=== PATIENT | female | born 1940 | race Caucasian/White ===

== ENCOUNTER → 2021-05-19 | Outpatient (CLI) | payer OTHER ==
[~2021-05-19] MED LIST: ALEVE220 M1 PO; COLACE 100MG C100 MG PO; DIGOXIN125 MCG PO; ELIQUIS 5 MG TAB5 MG PO; HYDROCHLOROTHIA25 MG PO; METOPROLOL SUCC25 MG PO; MULTAQ 400 MG400 MG PO; SENNA LAX8.6 MG PO
== END ==
LOC: HEART 5 14:05
DX: I48.91 Unspecified atrial fibrillation (principal); R60.9 Edema, unspecified; R06.02 Shortness of breath; I08.3 Combined rheumatic disorders of mitral, aortic and tricuspid valves; I27.20 Pulmonary hypertension, unspecified; J98.4 Other disorders of lung
CPT/HCPCS: 93306

== ENCOUNTER 2021-10-06 09:45 | Emergency (ER) | payer OTHER ==
[2021-10-06 11:01] LABS: HEMOGLOBIN 12.7 gm/dl (12.3-15.3); RED BLOOD COUNT 4.52 M/UL (4.00-5.10); WHITE BLOOD COUNT 9.9 K/UL (4.5-11.0)
[2021-10-06 11:27] LABS: BUN/CREATININE RATIO 20 (0-10)
[2021-10-06] MEDS ORDERED: AUGMENTIN 875-1 EACH PO (12:45)
== END 2021-10-06 15:50 | disposition other institution (70) ==
LOC: ER1 09:45
PROVIDERS: Nurse Practitioner
DX: J18.9 Pneumonia, unspecified organism (principal); K22.2 Esophageal obstruction; E07.9 Disorder of thyroid, unspecified; J39.8 Other specified diseases of upper respiratory tract; J81.1 Chronic pulmonary edema; Z20.822 Contact with and (suspected) exposure to COVID-19; I48.91 Unspecified atrial fibrillation; I10 Essential (primary) hypertension; Z90.710 Acquired absence of both cervix and uterus; Z88.1 Allergy status to other antibiotic agents; Z88.8 Allergy status to other drugs, medicaments and biological substances; Z79.899 Other long term (current) drug therapy
CPT/HCPCS: 71045; 71260; 80053; 81001; 82550; 82553; 83605; 83874; 83880; 84484; 85025; 87040; 93005; 94664; 99285; Q9967; U0002

== ENCOUNTER 2021-11-07 09:26 | Emergency (ER) | payer OTHER ==
[~2021-11-07 09:26] MED LIST changes: +AUGMENTIN 875-1 EACH PO
[2021-11-07 10:03] LABS: HEMOGLOBIN 12.1 gm/dl (12.3-15.3); RED BLOOD COUNT 4.35 M/UL (4.00-5.10); WHITE BLOOD COUNT 6.3 K/UL (4.5-11.0)
[2021-11-07 10:30] LABS: BUN/CREATININE RATIO 28 (0-10)
[2021-11-08 03:20] LABS: ACINETOBACTER BAUMANNII Not Detected (Negative); CANDIDA ALBICANS Not Detected (Negative); CANDIDA KRUSEI Not Detected (Negative); CANDIDA TROPICALIS Not Detected (Negative); ENTEROCOCCUS Not Detected (Negative); HAEMOPHILUS INFLUENZAE Not Detected (Negative); KLEBSIELLA OXYTOCA Not Detected (Negative); KLEBSIELLA PNEUMONIAE Not Detected (Negative); KPC-CARBAPENEM-RESISTANCE GENE Not Detected (Negative); PROTEUS Not Detected (Negative); PSEUDOMONAS AERUGINOSA Not Detected (Negative); SERRATIA MARCESANS Not Detected (Negative); STAPHYLOCOCCUS Not Detected (Negative); STAPHYLOCOCCUS AUREUS Not Detected (Negative); STREP AGALACTIAE (GROUP B) Not Detected (Negative); STREP PYOGENES (GROUP A) Not Detected (Negative); STREPTOCOCCUS Not Detected (Negative); mecA (METHICILLIN RESIST GENE Not Detected (Negative); vanA/B (VANCOMYCIN RESIST GENE Not Detected (Negative)
[2021-11-08 03:24] LABS: ESCHERICHIA COLI DETECTED (Negative)
== END 2021-11-07 20:20 | disposition short-term general hospital (02) ==
LOC: ER1 09:26
PROVIDERS: Emergency Medicine
DX: N13.2 Hydronephrosis with renal and ureteral calculous obstruction (principal); N39.0 Urinary tract infection, site not specified; J44.9 Chronic obstructive pulmonary disease, unspecified; I48.91 Unspecified atrial fibrillation; E87.6 Hypokalemia; Z20.822 Contact with and (suspected) exposure to COVID-19
CPT/HCPCS: 71045; 80053; 81001; 82550; 82553; 83036; 83605; 83690; 83735; 83874; 84132; 84439; 84443; 84484; 85025; 87040; 87077; 87086; 87150; 87186; 93005; 94640; 94664; 94760; 96372; 96374; 96375; 99285; J1650; J2185; J2270; J2405; U0002

== ENCOUNTER → 2022-01-11 | Outpatient (CLI) | payer OTHER | LOC: CT 09:00 | DX: D44.0 Neoplasm of uncertain behavior of thyroid gland (principal); E01.0 Iodine-deficiency related diffuse (endemic) goiter; K80.20 Calculus of gallbladder without cholecystitis without obstruction | CPT/HCPCS: 71250 ==

== ENCOUNTER → 2022-01-19 | Outpatient (CLI) | payer OTHER | LOC: ECHO 09:29 → HEART 5 09:29 | DX: R06.00 Dyspnea, unspecified (principal) | CPT/HCPCS: 94060; 94729 ==